=== PATIENT | male | born 1955 | race Caucasian/White ===

== ENCOUNTER 2021-12-28 14:07 | Emergency (ER) | payer MEDICARE, BC ==
[~2021-12-28] VITALS: Ht 190.5 cm; Wt 140.9 kg
[2021-12-28 14:50] LABS: BASO # 0.1 10^3/uL (0.0-0.2); BASO % 0.3 % (0.0-1.0); EOS % 0.1 % (0.0-3.0); HEMATOCRIT 43.7 % (42.0-52.0); LYMPH # 1.6 10^3/uL (1.5-5.0); LYMPH % 9.9 % (24.0-44.0); MEAN CORPUSCULAR HEMOGLOBIN 30.7 pg (27.0-33.0); MEAN CORPUSCULAR HGB CONC 34.3 g/dl (32.0-36.5); MEAN CORPUSCULAR VOLUME 89.5 fl (80.0-96.0); MONO % 10.2 % (2.0-8.0); NEUTROPHILS # 12.4 10^3/uL (1.5-8.5); NEUTROPHILS % 78.9 % (36.0-66.0); PLATELET COUNT, AUTOMATED 256 10^3/uL (150-450); RED BLOOD COUNT 4.88 10^6/uL (4.30-6.10); WHITE BLOOD COUNT 15.7 10^3/uL (4.0-10.0)
[2021-12-28 15:01] LABS: INR 1.07; PROTHROMBIN TIME 14.3 SECONDS (12.7-14.5)
[2021-12-28 15:13] LABS: MONO # 1.6 10^3/uL (0.0-0.8)
[2021-12-28 15:21] LABS: CK-MB VALUE MASS 1.6 NG/ML (<3.6); MB/CK RELATIVE INDEX 1.1 (< OR =4)
[2021-12-28] MEDS ORDERED: GI COCKTAIL 50ML BTL(HYOSCYAMINE/MAALOX/LIDOCAINE VISCOUS)(1:3:1) PO ONE (15:30)
[2021-12-28 16:44] LABS: BLOOD UREA NITROGEN 12 MG/DL (7-18); CALCIUM LEVEL 9.2 MG/DL (8.8-10.2); CARBON DIOXIDE LEVEL 26 mmol/L (20-29); CHLORIDE LEVEL 103 MEQ/L (98-107); CREATININE FOR GFR 0.78 MG/DL (0.70-1.30); GLOMERULAR FILTRATION RATE > 60.0 (>49); GLUCOSE, FASTING 148 MG/DL (70-100); POTASSIUM SERUM 4.8 MEQ/L (3.5-5.1); SODIUM LEVEL 134 MEQ/L (136-145)
[2021-12-28 16:45] LABS: ALBUMIN 3.3 GM/DL (3.2-5.2); ALT/SGPT 56 IU/L (0-32); BILIRUBIN,DIRECT 0.2 MG/DL (0.0-0.2); BILIRUBIN,TOTAL 0.9 MG/DL (0.2-1.0); TOTAL PROTEIN 6.8 GM/DL (6.4-8.2)
[2021-12-28 16:46] LABS: LIPASE 100 U/L (73-393)
[2021-12-28] MEDS ORDERED: ISOVUE-370 76% 100ML VIAL As Ordered ONE (17:01)
[2021-12-28 17:14] LABS: RSV AMPLIFICATION NEGATIVE (NEGATIVE)
[2021-12-28 17:59] LABS: CK-MB VALUE MASS < 1.0 NG/ML (<3.6); CPK CREATINE PHOSPHOKINASE 84 U/L (39-308); MB/CK RELATIVE INDEX 1.19 (< OR =4)
[2021-12-28 17:59] LABS: NT-PRO BNP 943 PG/ML (<125)
[2021-12-28 18:45] VITALS: BP 142/89
[2021-12-28] MEDS ORDERED: OMEP40CA4 PO (19:05)
[2021-12-28] MEDS ORDERED: COLC0.6T47 PO (19:05)
[2021-12-28] MEDS ORDERED: IBUP-1114 PO (19:05)
[2021-12-28] MEDS ORDERED: IBUPROFEN 400MG TAB PO ONE (19:25)
[2021-12-28] MEDS ORDERED: COLCHICINE 0.6 MG TABLET PO ONE (19:25)
== END 2021-12-28 19:43 | disposition home or self-care (01) ==
LOC: M ED 14:07
DX: I30.9 Acute pericarditis, unspecified (principal); I48.0 Paroxysmal atrial fibrillation; I45.10 Unspecified right bundle-branch block; I10 Essential (primary) hypertension; F10.10 Alcohol abuse, uncomplicated; K21.9 Gastro-esophageal reflux disease without esophagitis; Z79.899 Other long term (current) drug therapy
CPT/HCPCS: 36415; 71045; 71275; 80048; 80076; 82550; 82553; 83690; 83880; 84484; 85025; 85610; 87631; 93005; 93041; 94760; 99285; Q9967